=== PATIENT | female | born 1985 | race Caucasian/White ===

== ENCOUNTER 2018-09-20 20:44 | Emergency (ER) | payer MEDICAID ==
[2018-09-20] MEDS ORDERED: Tetracaine HCl/PF 0.5% 4 ML Bottle EYERT ONE (22:01)
--- NOTE | 2018-09-20 22:29 | EDM.PDOC ---
ED HPI GENERAL MEDICAL PROBLEM - General Chief Complaint: Eye Problems Stated Complaint: SOMETHING IN EYE Time Seen by Provider: 09/20/18 22:31 Source of Information: Reports: Patient History Limitations: Reports: No Limitations - History of Present Illness INITIAL COMMENTS - FREE TEXT/NARRATIVE: pt arrived with pain in her rt eye. She did not have a known injury. She was in the shower and at that time she began having problems. Onset: Today, Sudden Duration: Hour(s): Location: Reports: Face Associated Symptoms: Reports: No Other Symptoms Right Eye Pain Score (Numeric/FACES): 6 - Related Data Allergies Allergy/AdvReac Type Severity Reaction Status Date / Time shellfish derived Allergy Anaphylactic Verified 09/20/18 21:25 Shock Home Meds: Home Meds Belimumab [Benlysta] 120 mg IV ASDIRECTED 09/20/18 [History] Leflunomide [Arava] 20 mg PO DAILY 09/20/18 [History] Montelukast [Singulair] 10 mg PO DAILY 09/20/18 [History] Omeprazole 20 mg PO DAILY 09/20/18 [History] Past Medical History Cardiovascular History: Reports: Hypertension Respiratory History: Reports: Asthma [employer] History: Reports: , Spontaneous Endocrine/Metabolic History: Reports: Other (See Below) Other Endocrine/Metabolic History: lUPUS SJOLGREN"S Dermatologic History: Reports: Other (See Below) Other Dermatologic History: RASH - Infectious Disease History Infectious Disease History: Reports: Chicken Pox Social & Family History - Tobacco Use Smoking Status *Q: Current Every Day Smoker Years of Tobacco use: 10 Packs/Tins Daily: 0.5 Used Tobacco, but Quit: No Second Hand Smoke Exposure: Yes - Caffeine Use Caffeine Use: Reports: Coffee - Alcohol Use Days Per Week of Alcohol Use: 0 - Recreational Drug Use Recreational Drug Use: No ED ROS GENERAL - Review of Systems Review Of Systems: See Below Constitutional: Reports: No Symptoms HEENT: Reports: Other (pt arrived with a irritated rt eye. She was in the shower and she started having pain. She had no known injury. ) Respiratory: Reports: No Symptoms Cardiovascular: Reports: No Symptoms Endocrine: Reports: No Symptoms GI/Abdominal: Reports: No Symptoms : Reports: No Symptoms Musculoskeletal: Reports: No Symptoms ED EXAM GENERAL W FULL EYE - Physical Exam Exam: See Below Text/Narrative:: ptt developed pain in her rt eye She was in the shower ans she suddenly noticed the discomfort. Exam Limited By: No Limitations General Appearance: Alert, Mild Distress, Other ( her rt eye looks mildly red. She does not have a foreign body that can be seen, She did get good relief with the tetrascaine. ) Ears: Normal TMs Nose: Normal Inspection Throat/Mouth: Normal Inspection Head: Atraumatic Course - Vital Signs Last Recorded V/S: Last Vital Signs Temp 36.4 C 09/20/18 21:37 Pulse 72 09/20/18 21:37 Resp 14 09/20/18 21:37 BP 150/82 H 09/20/18 21:37 Pulse Ox 100 09/20/18 21:37 - Orders/Labs/Meds Meds: Medications Discontinued Medications Generic Name Dose Route Start Last Admin Trade Name Freq PRN Reason Stop Dose Admin Tetracaine HCl 1 ml 09/20/18 22:01 09/20/18 22:07 Tetracaine 0.5% Steri-Unit Sasha EYERT 09/20/18 22:02 2 drop ASDIRECTED ONE Administration - Re-Assessments/Exams Free Text/Narrative Re-Assessment/Exam: 09/20/18 22:37 tetracaine was inserted in the rt eye. The eye was stained and there is a very superficial abrasion in the lower corneal area and also involving the conjuntivia. Departure - Departure Time of Disposition: 22:27 Disposition: Home, Self-Care 01 Condition: Fair Clinical Impression: Corneal abrasion, right - Discharge Information Instructions: Corneal Abrasion, [id number] Referrals: PCP,None [Primary Care Provider] - Forms: ED Department Discharge Care Plan Goals: avoid rubbing and lite exposure., gentamycin eye drops tid for 5 days. motrin 600mg q6h prn for pain
== END 2018-09-20 22:36 | disposition home or self-care (01) ==
LOC: JP.ED 20:44
DX: S05.01XA Injury of conjunctiva and corneal abrasion without foreign body, right eye, initial encounter (principal); I10 Essential (primary) hypertension; J45.909 Unspecified asthma, uncomplicated; F17.210 Nicotine dependence, cigarettes, uncomplicated; Z91.013 Allergy to seafood; Z79.899 Other long term (current) drug therapy; X58.XXXA Exposure to other specified factors, initial encounter
CPT/HCPCS: 99283